=== PATIENT | female | born 1980 | race Caucasian/White ===

== ENCOUNTER 2017-03-03 00:56 | Inpatient (IN) | payer BC ==
[~2017-03-03] VITALS: Ht 170.2 cm; Wt 105.0 kg
[2017-03-03] VITALS (10 sets, daily range): BP systolic 112–164; BP diastolic 53–88
[2017-03-03] MEDS ORDERED: SYNTHROID88 MCG PO (02:04)
[2017-03-03] MEDS ORDERED: SINGULAIR10 MG PO (02:05)
[2017-03-03] MEDS ORDERED: ZOLOFT50 MG PO (02:05)
[2017-03-03] MEDS ORDERED: PULMICORT FLE180 MCG IH (02:06)
[2017-03-03] MEDS ORDERED: PRENATAL TABLE1 EAC3 PO (02:06)
[2017-03-03] MEDS ORDERED: VITAMIN D2000 UNI1 PO (02:07)
[2017-03-03] MEDS ORDERED: PROBIOTIC1 EAC1 PO (02:08)
[2017-03-03] MEDS ORDERED: MOTRIN800 MG PO (02:16)
[2017-03-04 07:14] VITALS: BP 111/62
[2017-03-04 07:29] LABS: EOSINOPHIL COUNT 0.1 K/uL (0-0.3); HEMATOCRIT 34.2 % (36.0-46.0); IMMATURE GRANULOCYTE (%) 0.6 % (0.0-0.7); IMMATURE GRANULOCYTE COUNT 0.1 K/uL; INSTRUMENT ABS NEUTROPHIL CT 6.2 K/uL; LYMPHOCYTE COUNT 1.7 K/uL (1.0-2.8); MCH 30.2 PG (29.0-34.0); MCHC 33.3 G/DL (30.0-36.0); MCV 90.5 FL (83-99); MEAN PLAT.VOLUME 10.9 uM^3 (9.5-12.4); MONOCYTE (%) 6.6 % (3-12); MONOCYTE COUNT 0.6 K/uL (0-0.8); NEUTROPHIL (%) 71.7 % (45-76); NEUTROPHIL COUNT 6.2 K/uL (1.8-6.4); PLATELET COUNT 248 K/uL (156-360); RBC DIS.WIDTH-CV 15.2 % (11.8-14.6); RBC DIS.WIDTH-SD 49.9 % (39-53); RED BLOOD COUNT 3.78 M/uL (3.80-5.20); WHITE BLOOD COUNT 8.7 K/uL (4.1-10.2)
[2017-03-04] MEDS ORDERED: PERCOCET 5/31 TABLET PO (09:56)
== END 2017-03-04 16:05 | disposition home or self-care (01) | DRG 775 ==
LOC: LDRP-OP 00:56 → 2WEST 00:57 → LDRP-OP 03-29 11:43
PROVIDERS: Nurse Practitioner
PROC: 0HQ9XZZ Repair Perineum Skin, External Approach (ICD-10-PCS; principal; 2017-03-03)
PROC: 10E0XZZ Delivery of Products of Conception, External Approach (ICD-10-PCS; principal; 2017-03-03)
DX: O70.0 First degree perineal laceration during delivery (principal); O62.3 Precipitate labor; O99.344 Other mental disorders complicating childbirth; F41.9 Anxiety disorder, unspecified; O99.284 Endocrine, nutritional and metabolic diseases complicating childbirth; E03.9 Hypothyroidism, unspecified; O99.52 Diseases of the respiratory system complicating childbirth; J45.909 Unspecified asthma, uncomplicated; O99.214 Obesity complicating childbirth; E66.01 Morbid (severe) obesity due to excess calories; Z68.35 Body mass index [BMI] 35.0-35.9, adult; Z3A.40 40 weeks gestation of pregnancy; Z37.0 Single live birth
CPT/HCPCS: 85025; J2590